=== PATIENT | female | born 1965 | race Caucasian/White ===

== ENCOUNTER 2023-08-05 19:09 | Outpatient (REF) | payer MEDICAID, SELFPAY ==
[2023-08-05 20:25] LABS: Influenza A PCR NEGATIVE (Negative); Influenza B PCR NEGATIVE (Negative); Resp Syncy Virus RNA Qual PCR NEGATIVE (Negative); SARS COV2 PCR INHOUSE NEGATIVE (Negative)
== END 2023-08-05 19:10 | disposition home or self-care (01) ==
LOC: HO.HHCLNP 19:09
PROVIDERS: Visit Provider Family Medicine
DX: J06.9 Acute upper respiratory infection, unspecified (principal); Z11.52 Encounter for screening for COVID-19
CPT/HCPCS: 0241U; 87070

== ENCOUNTER 2024-01-11 08:23 | Outpatient (REF) | payer MEDICAID, SELFPAY ==
[2024-01-11 15:27] LABS: Alanine Aminotransferase 12 U/L (0-31); Albumin Level 4.3 g/dL (3.5-5.0); Alkaline Phosphatase 124 U/L (39-117); Anion Gap 12 (12-20); Aspartate Amino Transferase 18 U/L (5-31); Bilirubin Total 0.3 mg/dL (0.0-1.0); Blood Urea Nitrogen 17 mg/dL (9-16); Calcium 9.3 mg/dL (8.4-10.2); Carbon Dioxide 25 mmol/L (22-29); Chloride 108 mmol/L (96-108); Cholesterol 229 mg/dL (<200); Estimated Glomerular Filt Rate > 60; Glucose Random 76 mg/dL (60-115); HDL Cholesterol 63 mg/dL (>40); LDL Cholesterol Calculated 143 mg/dL (<100); Potassium 4.7 mmol/L (3.3-5.1); Sodium 140 mmol/L (135-145); Total Protein 7.9 g/dL (6.5-8.0); Triglycerides 118 mg/dL (<150)
== END 2024-01-11 08:24 | disposition home or self-care (01) ==
LOC: HO.CHCLDS 08:23
PROVIDERS: Visit Provider Internal Medicine
DX: E78.2 Mixed hyperlipidemia (principal)
CPT/HCPCS: 36415; 80053; 80061

== ENCOUNTER 2024-09-13 15:12 | Outpatient (REF) | payer MEDICAID, SELFPAY ==
[2024-09-13 17:55] LABS: Alanine Aminotransferase 23 U/L (0-31); Albumin Level 4.3 g/dL (3.5-5.0); Alkaline Phosphatase 123 U/L (39-117); Anion Gap 14 (12-20); Aspartate Amino Transferase 24 U/L (5-31); Bilirubin Total 0.3 mg/dL (0.0-1.0); Blood Urea Nitrogen 17 mg/dL (9-16); Calcium 9.5 mg/dL (8.4-10.2); Carbon Dioxide 29 mmol/L (22-29); Chloride 105 mmol/L (96-108); Cholesterol 142 mg/dL (<200); Estimated Glomerular Filt Rate > 60; Glucose Random 91 mg/dL (60-115); HDL Cholesterol 55 mg/dL (>40); LDL Cholesterol Calculated 55 mg/dL (<100); Sodium 144 mmol/L (135-145); Total Protein 7.5 g/dL (6.5-8.0); Triglycerides 163 mg/dL (<150)
--- OUTSIDE RECORDS SUMMARY | 2024-09-14 22:20 | XMS_ITS | Data Portability ---
Author Organization [facility], [address] Address [address] [place] [address] Assessment No assessment recorded. Plan of Treatment Reminders Order Date Submit Date Provider Last Modified By Organization Details Last Modified Time Details Appointments None recorded. Lab None recorded. Referral None recorded. Procedures None recorded. Surgeries None recorded. Imaging None recorded. Medication Orders Tubersol 5 tub. unit/0.1 mL intradermal injection solution 2022 023 [email or web address] Not available 3 15:18:01 Patient TargetsNo targets recorded. Patient InstructionsNo instructions recorded. Reason for Referral None Reported. Medical Equipment None Reported. Medications Name Sig Start Date Stop Date Status Note LastModified by Organization Details LastModified Time Tubersol 5 tub. unit/0.1 mL intradermal injection solution Inject 0.1 mL by intradermal route. 2022 active Not Available Not Available Not Avai lable Vitals None Recorded Social History None recorded. Functional Status None recorded. Mental Status None recorded. Family History Nothing Reported. Medical History No medical history recorded. Gynecological HistoryNo gynecological history recorded. Obstetrics History GPAL:G 0 P 0 0 0 0 Past Encounters Encounter ID Performer Location Encounter Start Date Encounter Closed Date Diagnosis/Indication Diagnosis SNOMED-CT Code Diagnosis ICD10 Code [id number] [address] [place] [address] 05/15/2020 13:08:46 05/15/2020 15:19:50 [id number] [address] [place] [address] 04/19/2019 16:05:31 04/19/2019 16:30:31 [id number] [address] [facility] [place] [address] 06/03/2015 13:31:00 06/03/2015 14:20:10 [id number] [address] [facility] [place] [address] 06/09/2017 13:17:18 06/09/2017 14:38:25 [id number] [address] [facility] [place] [address] 10/28/2018 08:18:47 10/28/2018 09:00:42 [id number] [address] Kamran [facility] [place] [address] 02/28/2017 08:39:54 02/28/2017 09:19:50 [id number] [address] [facility] [place] [address] 02/26/2017 13:13:13 02/26/2017 14:00:54 [id number] [address] [facility] [place] [address] 07/22/2019 17:01:41 07/22/2019 17:41:42 [id number] CHRIS AGUILERA MD [address] [facility] [place] [address] 12/03/2022 11:03:28 12/03/2022 15:43:29 History and physical examination, pre-employment [id number] Z02.1 Health Concerns Section Related Observation LastModified by Organization Detai ls LastModified Time None Recorded Concern Status LastModified by Organization Details LastModified Time None Recorded Advance Directives Directive None Recorded Payers Encounter Date Sequence Insurance Name Policy Number Policy Butler Covered Member ID Butler Member ID Guarantor Name 05/15/2020 1 [place] [facility] Chacha Gemma Delgado [id number] Chacha Gemma Delgado 12/03/2022 DO NOT USE Chacha L Danny PAY AT TIME OF SERVICE Chacha Delgado Notes Date Note Type Note Provider Name and Address Organization Details Recorded Time 12/03/2022 text/html PhysicalReported bypatient.source of patient informationpatient Patient presents for a physical for:Employment Occupation; 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 CHRIS AGUILERA MD [address] [place], [address], [place] - [employer] 12/03/2022 15:18:38 OBGyn Episode No OBEpisode recorded.
== END 2024-09-13 15:13 | disposition home or self-care (01) ==
LOC: HO.CHCLDS 15:12
PROVIDERS: Visit Provider Internal Medicine
DX: E78.2 Mixed hyperlipidemia (principal)
CPT/HCPCS: 36415; 80053; 80061

== ENCOUNTER 2025-06-09 08:23 | Emergency (ER) | payer OTHER, SELFPAY ==
--- NOTE | ~2025-06-09 | XR_ITS ---
EXAMINATION: XR CHEST 2 VIEWS HISTORY: left sided CP after injury COMPARISON: There are no prior studies available for comparison. FINDINGS: PA and lateral views of the chest are submitted. The lungs are expanded and clear. There is no pleural effusion, pneumothorax, or pulmonary vascular congestion. The heart is normal in size. The bones are intact. XR/XR chest 2V IMPRESSION: Clear lungs. Electronically signed by: Casa Ojeda MD 06/09/2025 09:29 AM EDT
--- NOTE | 2025-06-09 08:26 | ECG_ITS ---
Test Reason : CP Blood Pressure : */* mmHG Vent. Rate : 74 BPM Atrial Rate : 74 BPM P-R Int : 162 ms QRS Dur : 94 ms QT Int : 380 ms P-R-T Axes : 74 28 45 degrees QTcB Int : 421 ms Normal sinus rhythm Cannot rule out Anterior infarct (cited on or before 29-Aug-2013) Abnormal ECG When compared with ECG of 29-Aug-2013 12:13, No significant change was found Referred By: Generic ED Physician Electronically Signed By: Getachew Valdez
[2025-06-09 08:27] VITALS: BP 130/70; PULSE 98; O2SAT 98
--- NOTE | 2025-06-09 08:32 | ED.GENADULT ---
HPI - General Adult General Chief complaint: Chest Pain Stated complaint: chest pain Time Seen by Provider: 06/09/25 08:31 History of Present Illness ED Provider: Neri ESTEVEZ narrative: The patient is a 60-year-old woman. 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 Six days ago on Thursday she was loading a heavy box of juice into a juice dispensing was seen. She had to lift the box at least to the level of the her head or possibly higher to insert the box into the machine when the box fell back and struck her on the left side of her chest. The corner of the box struck her left anterior chest. She says that she had the wind knocked out of her but she did not fall to the floor. She said she had to take a few minutes to compose herself after having the wind knocked out of her but she seemed to recover and was able to continue working. She did not work the next day, on Thursday and she did not feel very bad but since then she has had worsening pain in the left side of her chest at the site where she was struck. Despite the pain she returned to work as scheduled on Thursday and has worked every day this week despite worsening pain. She says that yesterday she tried to be seen at an urgent care clinic because of this pain but the clinic did not take her insurance. This morning she went to work despite some pain. She did some lifting of boxes at work and then, with the an half an hour, she started to experience significantly worsening pain in the left side of her chest. She told coworkers and they called an ambulance and she was brought to the hospital. The pain is on the left side of her chest. It is worse with movement or with touching her chest. She has a mild associated shortness of breath. Breathing is somewhat painful. She reports a history of ovarian cancer for which she was treated about 14 years ago. She has no history of heart disease or stroke. No history of DVT/PE. She is on medication for cholesterol but does not take any other regular medications. No abdominal pain, nausea, vomiting. She is a smoker. She has a mild chronic cough. No marked increase in cough. No fever, sweats, chills. Related Data Previous Rx's ?Medication ?Instructions ?Recorded lidocaine 5 % topical patch 1 patch topical DAILY PRN pain #15 06/09/25 ea Allergies Allergy/AdvReac Type Severity Reaction Status Date / Time aspirin (ASPIRIN) Allergy Mild STOMACH Verified 06/09/25 08:36 UPSET Review of Systems Review of Systems: Yes all other systems are reviewed and are negative Physical Exam ED Vital Signs: Vital Signs - 24 hr 06/09/25 08:36 06/09/25 10:20 06/09/25 11:53 Temperature 98.0 F 98.2 F 98.2 F Pulse Rate 86 62 63 Respiratory Rate 12 12 13 Blood Pressure 138/72 122/68 114/66 Pulse Oximetry 98 99 97 Oxygen Delivery Method Room Air Room Air 06/09/25 12:00 Temperature 98.2 F Pulse Rate 63 Respiratory Rate 13 Blood Pressure 114/66 Pulse Oximetry 97 Oxygen Delivery Method Room Air BMI result Body Mass Index 27.6 Const Other: The patient is a 60-year-old woman who was awake and alert, pleasant cooperative. She does not appear obviously in distress or obviously ill. Orientation/consciousness: patient oriented x3 HENMT Other: The face is symmetrical. ?Mucous membranes moist. Eyes Other: Pupils are round equal, conjunctivae are clear, extraocular movements intact Neck Neck: Yes normal visual inspection, Yes full ROM and Yes no JVD Chest Other: There is left-sided chest wall tenderness anteriorly. No subcutaneous emphysema or crepitus. Resp Other: Breath sounds seem equal and symmetrical. Effort & Inspection: normal respiratory effort Auscultation: clear to auscultation bilaterally Cardio Rate: regular rate Rhythm: regular rhythm Heart sounds: S1 normal heart sound present and S2 normal heart sound present GI Other: The abdomen is soft and nontender Skin Other: The skin is dry and unremarkable. No bruises apparent on the chest. Neuro General: patient oriented x3, tone normal, moves all extremities, no focal motor deficits and CN's II-XI intact bilaterally Extrem Other: No injuries to the extremities. No peripheral edema. No calf swelling or tenderness. No asymmetry. Medications Administered Discontinued Medications Generic Name Dose Route Start Last Admin Trade Name Freq PRN Reason Stop Dose Admin Acetaminophen 1,000 mg in 100 mls @ 400 mls/hr 06/09/25 08:50 06/09/25 09:39 Ofirmev IV 06/09/25 09:04 Infused ONCE ONE Infusion Ketorolac Tromethamine 15 mg 06/09/25 08:50 06/09/25 09:05 Ketorolac Tromethamine 15 Mg/Ml Vial IVPUSH 06/09/25 08:51 15 mg ONCE ONE Administration Medical Decision Making Medical Decision Making [facility] Narrative: The patient is a 60-year-old woman who sustained a blow to her chest several days ago from a box striking her in the chest. She has had some persistent pain that was exacerbated by lifting things this morning. She has a normal chest x-ray. EKG is unremarkable. Labs are unremarkable. She has reproducible chest wall tenderness on exam. She has no pneumothorax on x-ray. No apparent rib fractures. My suspicion for rib fracture would be low. She felt better with a dose of IV ketorolac and acetaminophen. She felt comfortable being discharged. She will be discharged with conservative instructions. Lab Data 06/09/25 08:59 06/09/25 08:59 Labs: Lab Results 06/09/25 Range/Units 08:59 WBC 8.2 (4.8-10.8) X10*3/uL RBC 4.35 (4.20-5.50) X10*6/uL Hgb 13.5 (12.0-16.0) g/dl Hct 38.0 (37.0-47.0) % MCV 87.4 (80.0-98.0) fL MCH 31.0 (27.0-33.0) pg MCHC 35.5 H (31.0-35.0) g/dl RDW 12.3 (11.0-16.0) % Plt Count 338 (160-400) X10*3/uL MPV 8.3 L (9.4-12.3) fL Immature Gran % (Auto) 0.4 (0.0-0.4) % Neut % (Auto) 58.6 (45-73) % Lymph % (Auto) 32.5 (20-40) % Bell % (Auto) 6.8 (2-11) % Eos % (Auto) 1.1 (0-4) % Baso % (Auto) 0.6 (0-2) % Lymph # (Auto) 2.7 (1.2-4.9) X10*3/uL Bell # (Auto) 0.6 (0.1-1.2) X10*3/uL Eos # (Auto) 0.1 (0.0-0.4) X10*3/uL Baso # (Auto) 0.1 (0.0-0.2) X10*3/uL Abs Immat Gran (auto) 0.03 (0.00-0.03) X10*3/uL Absolute Neuts (auto) 4.8 (2.0-8.3) x10*3/uL Absolute Nucleated RBC 0.000 (0.0-0.012) X10*3/uL Nucleated RBC % (auto) 0.0 (0.0-0.2) /100WBC Sodium 143 (135-145) mmol/L Potassium 4.3 (3.3-5.1) mmol/L Chloride 109 H (96-108) mmol/L Carbon Dioxide 25 (22-29) mmol/L Anion Gap 13 (12-20) BUN 13 (9-16) mg/dL Creatinine 0.56 (0.5-1.4) mg/dL Estim Creat Clear Calc 119.0 Estimated GFR > 60 Random Glucose 96 (60-115) mg/dL Calcium 8.9 D (8.4-10.2) mg/dL Total Bilirubin 0.6 (0.0-1.0) mg/dL Direct Bilirubin 0.2 (0.0-0.5) mg/dL AST 24 (5-31) U/L ALT 12 (0-31) U/L Alkaline Phosphatase 121 H (39-117) U/L Troponin I High Sens < 2.7 (<3.5-17.0) ng/L Total Protein 7.1 (6.5-8.0) g/dL Albumin 4.5 (3.5-5.0) g/dL Independent Interpretation I performed an independent interpretation of an: EKG Interpretation: EKG at 12/05/2007 shows normal sinus rhythm at 74 beats per minute. It seems to be an unremarkable EKG in his similar to her previous EKG. Discharge Plan Discharge Clinical Impression: Contusion of left chest wall Patient Disposition: Home, Self-Care Additional Instructions: I think your pain is coming primarily from an injury to your chest wall. I think this is probably something like a bad internal bruising of your chest wall. Your EKG, your chest x-ray, and your blood work are all reassuring. I think your insurance may cover lidocaine patches. You may use these for pain. 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 You can then put on another patch the following day in a similar manner. Otherwise please rest over the weekend and avoid activities that exacerbate your pain. My hope is that you will be feeling well enough to return to work on Thursday. Please follow up with your regular doctor soon. Return to the emergency room if significantly worse. Prescriptions: New lidocaine 5 % adhesive patch,medicated 1 patch topical DAILY PRN (Reason: pain) Qty: 15 0RF Rx Instructions: leave on most painful area for up to 12 hrs Referrals: [facility] [Provider Group] Interventions: ED Discharge Assessment Last Done: 06/09/25 12:00 Discharge Date/Time: 06/09/25 12:01 Print Language: Tamazight
[2025-06-09 08:36] VITALS: BP 138/72; PULSE 86; RESP 12; TEMP 36.7; O2SAT 98; BMI 27.6
--- NOTE | 2025-06-09 08:53 | PC.NURSE ---
Pt presents with reproducible left sided chest pain after having a box of drinks fall from shelf onto chest 6days ago. Tender to touch. Some SOB. Pain worsening today after lifting boxes. EKG done upon arrival. VSS. NAD. CORNEJO at bedside. Pending labs and xray
[2025-06-09 09:05] LABS: MANUAL DIFF FLAG NO
[2025-06-09 09:06] LABS: Hematocrit 38.0 % (37.0-47.0); Hemoglobin 13.5 g/dl (12.0-16.0); Imm Gran Abs Auto 0.03 X10*3/uL (0.00-0.03); Imm Gran Pct Auto 0.4 % (0.0-0.4); Lymphocytes Absolute Auto 2.7 X10*3/uL (1.2-4.9); Mean Corpuscular HGB Conc 35.5 g/dl (31.0-35.0); Mean Corpuscular Hemoglobin 31.0 pg (27.0-33.0); Mean Corpuscular Volume 87.4 fL (80.0-98.0); NRBC Abs Auto 0.000 X10*3/uL (0.0-0.012); NRBC Pct Auto 0.0 /100WBC (0.0-0.2); Platelet Count 338 X10*3/uL (160-400); Red Blood Count 4.35 X10*6/uL (4.20-5.50); White Blood Count 8.2 X10*3/uL (4.8-10.8)
--- OUTSIDE RECORDS SUMMARY | 2025-06-09 09:19 | XMS_ITS | Clinical Summary ---
Author Organization [employer] Address [address] [place] [address] [address] [place] [address] Care Team Providers Care Marine Electronics Repairer Name Role Phone Gab Irby MD Primary Care Prov ider Allergies Active Allergy Reactions Criticality Noted Date Comments Aspirin 12/26/2022 Medications albuterol 108 (90 Base) MCG/ACT inhalerIndicati ons:Bronchitis Inhale 2 puffs every 4 (four) hours if needed for wheezing. 18 g 3 3 Active Blood Pressure kitIndications: Elevated blood pressure reading 1 Units in the morning. 1 kit 3 Active atorvastatin (Lipitor) 20 MG tablet Take 1 tablet (20 mg) by mouth Once per day. 90 tablet 3 4 09/13/20 25 Active hydrOXYzine HCl (Atarax) 25 MG tablet Take 1 tablet (25 mg) by mouth if needed in the morning, at noon, and at bedtime for anxiety. 90 tablet 3 4 Active fluticasone (Flonase) 50 MCG/ACT nasal spray INHALE 1 - 2 SPRAYS IN EACH NOSTRIL ONCE DAILY 16 g 2 5 Active tiZANidine (Zanaflex) 2 MG tablet Take 1 tablet (2 mg) by mouth every 8 (eight) hours if needed for muscle spasms for up to 10 days. 30 tablet 1 5 Active lidocaine (Lidoderm) 5 % patch Apply 1 patch topically Once per day. Remove & discard patch within 12 hours or as directed by MD. 30 patch 2 5 04/27/20 26 Active Active Problems Problem Noted Date Diagnosed Date Sinus congestion 01/15/2024 Assessment & Plan (09/13/2024 7:55 PM EST): Renewed flonase, avoid smoking Assessment & Plan (01/15/2024 12:05 AM EDT): Will send flonase, call back if not improving, patient has jx of nasal polyps Anxiety 01/15/2024 Assessment & Plan (01/15/2024 12:06 AM EDT): Will order hydroxyzine as needed Bronchitis 08/05/2023 Assessment & Plan (08/12/2023 6:26 PM EST): Will order PFT tot evaluate for COPD Assessment & Plan (08/05/2023 3:24 PM EDT): Patient that presented visit with complaints of Bronchitis symptoms will be prescribed with antibiotics, steroids and inhaler to treat symptoms. Will pursue possible testing for COPD when patient improves URI symptoms. Elevated blood pressure reading 08/05/2023 Assessment & Plan (09/13/2024 7:54 PM EST): Controlled, continue monitoring, bp target <140/90, keep low sodium diet and exercise as tolerated Assessment & Plan (12/22/2023 3:01 PM EDT): Has remained stable refers has stayed below 140/90, last was 127/82 Assessment & Plan (08/12/2023 6:29 PM EST): Patient did not picked up her bp monitor, today was elevated, told to keep a bp log, low sodium diet, will schedule a follow up in 1 month Assessment & Plan (08/05/2023 3:24 PM EDT): Noticed that patient's BP was elevated at the time of visit with readings of 156/88 mmHg. Will make follow up appointment with PCP. Mixed hyperlipidemia 01/14/2023 Assessment & Plan (09/13/2024 7:55 PM EST): New labs ordered for guidance of therapy, she restarted smoking again, risk were discussed, Assessment & Plan (06/23/2024 11:07 AM EDT): Patient sopped taking statin therapy for a month due to insurance issue, will renew medication and follow up in 2 months with new labs to determine if increase in medication needed Assessment & Plan (01/15/2024 12:04 AM EDT): Ascvd risk score 6.7%, discussed with patient risk vs benefits of statin therapy, she agree on restarting medication, follow up in 2 months Assessment & Plan (12/22/2023 3:04 PM EDT): Patient stopped taking atorvastatin, will order new labs, will conside rosuvastatin Assessment & Plan (01/14/2023 9:05 AM EDT): Will start on atorvastatin 20mg, reviewed diet and exercise recommendations, follow up in 2 months with labs, encouraged smoking cessation Annual physical exam 12/26/2022 Assessment & Plan (12/26/2022 1:31 PM EDT): Physical examination was unremarkable She has hx of Jake/BSo done in 2010 in [facility] due to malignancy Patient refers last colonoscopy done in 2014 at [facility], good for 10 years Will refer for screening breast cancer Will refer to thoracic surgery for lung cancer screening Nicotine patches will be provided Lab order placed Encounter for screening mamm ogram for malignant neoplasm of breast 12/26/2022 Assessment & Plan (12/22/2023 3:02 PM EDT): Patient will reschedule appointment, reviewed importance of monitoring Screening for colon cancer 12/26/2022 Assessment & Plan (08/12/2023 6:27 PM EST): Will send cologuard, risk vs benefits discussed Screening for lung cancer 12/26/2022 Smoker 12/26/2022 Assessment & Plan (06/23/2024 11:08 AM EDT): Encouraged smoking cessation, risk vs benefits discussed Assessment & Plan (12/22/2023 3:03 PM EDT): Has cut down to 6-7 cig daily, reviewed importance of smoking cessation Assessment & Plan (12/26/2022 1:29 PM EDT): Will provide nicotine patches, currently smoking 4-5 cig daily Encounters Date Type Department Care Team Description 06/06/2025 Travel 05/30/2025 Telephone [facility] [address] [place] [address] Gab Irby MD No Show 05/30/2025 Telephone [facility] [address] [place] [address] Gab Irby MD 05/30/2025 Travel 05/29/2025 Telephone [facility] [address] [place] [address] Gab Irby MD chart prep 04/27/2025 2:00 PM EDT Office Visit [facility] [address] [place] [address] Laz Menendez MD Right hip pain (Primary Dx); Right buttock pain; Tobacco dependence; Left foot pain 04/27/2025 Travel 04/27/2025 Telephone [facility] [address] [place] [address] Gab Irby MD Nurse Triage 03/09/2025 Telephone [facility] [address] [place] [address] Gab Irby MD from Last 3 Months Immunizations Immunization Administration Dates Next Due Influenza Injectable Quadriv alant Preservative Free IIV4 MDCK 06/12/2020 Influenza injectable quadriv alent IIV4 with preservative 06/15/2019 MMR 02/04/2023,01/07/2023 Social History Tobacco Use Types Packs/Day Years Used Date Smoking Tobacco: Every Day Cigarettes 0.5 30 Passive Smoke Exposure: Current Smokeless Tobacco: Never Tobacco Cessation:Ready to Q uit: Not Asked; Counseling Given: Not Answered Alcohol Use Standard Drinks/Week Comments Not Currently 0 (1 standard drink = 0.6 oz pur e alcohol) Depression Answer Date Recorded Patient Health Questionnaire-9 Score 0 12/26/2022 Housing Stability Answer Date Recorded What is your housing situation today? I have carol sosa 07/23/[address] you li ve. Do you have problems with any of the following? None of the above 07/23/2023 Food Insecurity Answer Date Recorded Within the past 12 months, y ou worried that your food would run out before you got money to buy more: Never True 07/23/2023 Within the past 12 months,th e food you bought just didn't last and you didn't have enough money to get more: Never True Transportation Answer Date Recorded In the past 12 months, has l ack of transportation kept you from medical appts, meetings, work or from getting things needed for daily living? No 07/23/2023 Utilities Answer Date Recorded In the past 12 months, has t he electric, gas, oil or water company threatened to shut off services in your home? No 07/23/2023 Depression Answer Date Recorded Patient Health Questionnaire-2 Score 0 12/26/2022 Comments Unknown Sex and Gender Information Value Date Recorded Sex Assigned at Female 08/04/2022 10:20 AM EDT Legal Sex Female 10:20 AM EDT Gender Identity Female 08/04/2022 10:20 AM EDT Sexual Orientation Choose not to disclose 2021 10:20 AM EDT Last Filed Vital Signs Vital Sign Reading Time Taken Comments Blood Pressure 134/76 04/27/2025 2:01 PM EDT Pulse 82 04/27/2025 2:01 PM EDT Temperature 36.5 C (97.7 F) 04/27/2025 2:01 PM EDT Respiratory Rate 20 04/27/2025 2:01 PM EDT Oxygen Saturation 98% 04/27/2025 2:01 PM EDT Inhaled Oxygen Concentration - - Weight 79.5 kg (175 lb 3.2 oz) 04/27/2025 2:01 P M EDT Height 160 cm (5' 3 ) 04/27/2025 2:01 PM EDT Body Mass Index 31.04 04/27/2025 2:01 PM EDT Plan of Treatment Upcoming Encounters Date Type Department Care Team ([facility] st Contact Info) Description 06/21/2025 2:15 PM EDT Telemedicine [facility] [address] [place] [address] Gab Irby MD [address] [place] [address] Health Maintenance Due Date Last Done Comments CT Colonography 1967 Colonoscopy 1967 FIT 1967 Sigmoidoscopy 1967 Disability Screening 1967 Alcohol/Substance Use Screening 1979 DTaP/Tdap/Td Vaccines (1 - Tdap) 1986 Hepatitis B Vaccines (1 of 3 - 19+ 3-dose series) 1986 Pneumococcal Vaccine: 50+ Years (1 of 2 - PCV) 1986 Pap Smear 01/09/1988 HPV/Cotest 1997 Mammogram 2007 Zoster Vaccines (1 of 2) 2017 Depression Screening 12/27/2023 12/26/2022, 12/26/2022 SDOH Screening 12/27/2023 12/26/2022 FOBT 08/26/2024 08/26/2023 COVID-19 Vaccine (1 - 2023-2 5 season) 2025 Influenza Vaccine (#1) 2025 , 06/15/2019 Tobacco Screening 04/27/2026 04/27/2025 Colorectal Cancer Screening 08/26/2026 FIT DNA/Cologuard 08/26/2026 08/26/2023 Lipid Panel 09/13/2029 09/13/2024, 01/11/2024, 12/26/2022 RSV Patients and Patients Aged 60 years or older (1 - 1-dose 75+ series) 2042 HIV Screening Completed 12/26/2022 Hepatitis C Screening Completed 12/26/2022 Cervical Cancer Screening Discontinued HIB Vaccines Aged Out No longer eligi ble based on patient's age to complete this topic HPV Vaccines Aged Out No longer eligi ble based on patient's age to complete this topic Hepatitis A Vaccines Aged Out No long er eligible based on patient's age to complete this topic IPV Vaccines Aged Out No longer eligi ble based on patient's age to complete this topic Meningococcal B Vaccine Aged Out No l onger eligible based on patient's age to complete this topic Meningococcal Vaccine Aged Out No maria m merle eligible based on patient's age to complete this topic RSV under 20 months Aged Out No longe r eligible based on patient's age to complete this topic Rotavirus Vaccines Aged Out No longer eligible based on patient's age to complete this topic Procedures Procedure Name Priority Date/Time Associated Diagnosis Comments LIPID PANEL, STANDARD Routine 09/13/2024 3:13 PM EST Mixed hyperlipidemia LAB COLOGUARD COLON CANCER SCREEN Routine 08/26/2023 5:30 AM EST Screening for colon cancer HEPATITIS C AB W/REFL TO HCV RNA, QN, PCR Routine 12/26/2022 11:43 AM EDT Annual physical exam HIV 1 RNA, QN PCR W/RFL JIM (RTI,PI,INTEGRASE) Routine 12/26/2022 11:43 AM EDT Annual physical exam from Last 3 Months or Most Recently Relevant to Health Maintenance Results * (ABNORMAL) Lipid Panel, Standard (09/13/2024 3:13 PM EST) Triglycerides 163(H) <150 mg/dL [facility] Comment:Desirable Triglyceri de: less than 150 mg/dLBorderline High Triglyceride 150-199 mg/dLHigh Triglyceride: 200-499 mg/dLVery High Triglyceride: greater than or equal to 5OO mg/dL Cholesterol 142 <200 mg/dL [facility] Comment:Desirable Cholestero l: less than 200 mg/dLBorderline High Cholesterol: 200-239 mg/dLHigh Cholesterol: greater than 239 mg/dL LDL Cholesterol Calculated 55 <100 mg/dL [facility] Comment:Desirable LDL: less than 100 mg/dLNear Optimal/Above Optimal LDL: 110- 129 mg/dLBorderline High LDL: 130-159 mg/dLHigh LDL: 160-189 mg/dLVery High LDL: greater than or equal to 190 mg/dL HDL Cholesterol 55 >40 mg/dL [facility] Comment:Desirable HDL: great er than 40 mg/dL Note: This HDL assay may give artificially low results in patients with liver disease. Blood Venous blood specimen / Unknown 09/13/2024 3:13 PM EST 09/13/2024 5:36 PM EST Gab Wolfe MD LAB BLOOD ORDERABL ES Final Result [facility] [address] [place] [phone] * Cologuard?? colon cancer screening (08/26/2023 5:30 AM EST) Cologuard Result Negative Negative 09/04/20 5:15 PM EST [facility] (CLIA #:[id number]) Comment: NEGATIVE TEST RESULT. A negative Cologuard result indicates a low likelihood that a colorectal cancer (CRC) or advanced adenoma (adenomatous polyps with more advanced pre-malignant features) is present. The chance that a person with a negative Cologuard test has a colorectal cancer is less than 1 in 1500 (negative predictive value >99.9%) or has an advanced adenoma is less than 5.3% (negative predictive value 94.7%). These data are based on a prospective cross-sectional study of 10,000 individuals at average risk for colorectal cancer who were screened with both Cologuard and colonoscopy. (Joyce Sethi al, N Engl J Med 2014;370(14):4758-8785) The normal value (reference range) for this assay is negative. COLOGUARD RE-SCREENING RECOMMENDATION: Periodic colorectal cancer screening is an important part of preventive healthcare for asymptomatic individuals at average risk for colorectal cancer. Following a negative Cologuard result, the [place] Cancer Society and U.S. Multi-Society Task Force screening guidelines recommend a Cologuard re-screening interval of 3 years. References: [place] [employer] Guideline for Colorectal Cancer Screening: https://www.cancer.org/cancer/temta-bcurfr-jsmvws/fuuhqaxqc-vevglpidj-scfldwz/ac s-rec ommendations.html.; Benito DK, Ale CR, Noemi ParkK, Colorectal Cancer Screening: Recommendations for Physicians and Patients from the U.S. Multi-Society Task Force on Colorectal Cancer Screening , Am J Gastroenterology 2017; 112:9987-6286. TEST DESCRIPTION: Composite algorithmic analysis of stool DNA-biomarkers with hemoglobin immunoassay. Quantitative values of individual biomarkers are not reportable and are not associated with individual biomarker result reference ranges. Cologuard is intended for colorectal cancer screening of adults of either sex, 45 years or older, who are at average-risk for colorectal cancer (CRC). Cologuard has been approved for use by the U.S. FDA. The performance of Cologuard was established in a cross sectional study of average-risk adults aged 50-84. Cologuard performance in patients ages 45 to 49 years was estimated by sub-group analysis of near-age groups. Colonoscopies performed for a positive result may find as the most clinically significant lesion: colorectal cancer [4.0%], advanced adenoma (including sessile serrated polyps greater than or equal to 1cm diameter) [20%] or non- advanced adenoma [31%]; or no colorectal neoplasia [45%]. These estimates are derived from a prospective cross-sectional screening study of 10,000 individuals at average risk for colorectal cancer who were screened with both Cologuard and colonoscopy. (Joyce Sethi al, N Engl J Med 2014;370(14):3521-5435.) Cologuard may produce a false negative or false positive result (no colorectal cancer or precancerous polyp present at colonoscopy follow up). A negative Cologuard test result does not guarantee the absence of CRC or advanced adenoma (pre-cancer). The current Cologuard screening interval is every 3 years. ([place] [employer] Society and U.S. Multi-Society Task Force). Cologuard performance data in a 10,000 patient pivotal study using colonoscopy as the reference method can be accessed at the following location: www.DaoliCloud.[place]/results. Additional description of the Cologuard test process, warnings and precautions can be found at www.Netvibesrd.com. Stool specimen (specimen) 08/26/2023 5:30 AM EST 08/26/2023 5:57 PM EST Gab Wolfe MD LAB MOLECULAR DIAG NOSTICS ORDERABLES Final Result Performing Organization Address City/[facility]/ZIP Co de Phone Number [employer] (CLIA #:[id number]) [place] [address], * HIV-1 RNA, Quantitative, Real-Time PCR with Reflex to Genotype (RTI, PI, Integrase) (12/26/2022 11:43 AM EDT) HIV 1 RNA, QN PCR NOT DETECTED copies/mL [facility], HIV 1 RNA, QN PCR NOT DETECTED Log copies/mL [facility], Comment: REFERENCE RANGE: NOT DETECTED copies/mL NOT DETECTED Log copies/mL This test was performed using Real-Time Polymerase Chain Reaction. Reportable range is 20 to 10,000,000 copies/mL (1.30-7.00 Log copies/mL). 12/26/2022 11:4 3 AM EDT 12/26/2022 11:44 AM EDT Narrative [facility] - 12/29/2022 6:54 PM EDT FASTING:YES FASTING: YES Gab Wolfe MD LAB BLOOD ORDERABL ES Final Result Performing Organization Address [facility] de Phone Number [facility] [address], [place] [address] [facility], [address] [place] [address] * Hepatitis C Antibody with Reflex to HCV, RNA, Quantitative, Real-Time PCR (12/26/2022 11:43 AM EDT) Hepatitis C Antibody NON-REACT ALFONSO NON-REACT ALFONSO [facility] [employer] Index <0.02 <1.00 [facility] [employer] [facility] Comment: HCV antibody was non-reactive. There is no laboratory evidence of HCV infection. In most cases, no further action is required. However, if recent HCV exposure is suspected, a test for HCV RNA (test code 62301) is suggested. For additional information please refer to http://education.ev-social/faq/GIS89e0 (This link is being provided for informational/ educational purposes only.) Blood Venous blood specimen / Unknown 12/26/2022 11:43 AM EDT 12/26/2022 11:44 AM EDT Narrative [facility] - 12/29/2022 6:54 PM EDT FASTING:YES FASTING: YES Gab Wolfe MD LAB BLOOD ORDERABL ES Final Result [facility] [address], [place] [address] [facility] [address] [place] [address] from Last 3 Months or Most Recently Relevant to Health Maintenance Insurance [employer] [facility] 3 Care Teams Marine Electronics Repairer Relationship Specialty Start Date End Date Gab Irby MD [address] [place] [address] [place] [id number] PCP - General Internal Medicine 08/22/19
--- OUTSIDE RECORDS SUMMARY | 2025-06-09 09:19 | XMS_ITS | Encounter Summary ---
Author Organization [employer] Address [address] [place] [address] 7 [place] [address] Care Team Providers Care City Collector Name Role Phone Gab Irby MD Primary Care Prov ider Reason for Visit * Reason Onset Date Comments Nurse Triage 08/22/2024 Encounter Details Date Type Department Care Team ([facility] st Contact Info) Description 08/22/2024 Telephone [facility] [address] [place], [place] [phone] Gab Irby MD [address] [place] [address] Nurse Triage Social History Tobacco Use Types Packs/Day Years Used Date Smoking Tobacco: Former Cigarettes 0.5 30 Passive Smoke Exposure: Current Smokeless Tobacco: Never Alcohol Use Standard Drinks/Week Comments Not Currently [...] not to disclose 2021 10:20 AM EDT documented as of this encounter Miscellaneous Notes * Telephone Encounter - María Merida RN - 08/22/2024 10:34 AM EST triage call Pt reports left sided headache, ear, and throat pain. Pt reports this is a chronic problem and needs medication for pain. Pt doesn't have any pain medication on chart but, has flonase andatarax which were ordered for this condition in January of this year. Pt is advised to request refills that are still in the information. Pt requests to speak with PCP regarding pain medication. Pt is offered [facility] apts but, typewriter tester unable to obtain due to scheduled by [facility] at the same time. Pt is given a tele apt with PCP for 845am 08/23/24 . Pt has a follow up apt scheduled for 09/13/24 to be seen byPCP. Pt is at work at time of call. Insurance is verified as active prior to booking. Protocol Used: Medication Question Call (Adult) Protocol-Based Disposition: See in Office or Video Visit within 3 Days Positive Triage Question: * Prescription request for new medicine (not a refill) * All higher-acuity triage questions were negative Care Advice Discussed: * Reasons To Call Back - You have any more questions - You become worse * Telephone Encounter - Iva Larson - 08/22/2024 10:03 AM EST Symptom: Headache and ear pain Outcome: Schedule a same-day appointment or talk to a nurse or provider today Reason: Caller denied all higher acuity questions The caller accepted this outcome. documented in this encounter Plan of Treatment Upcoming Encounters Date Type Department Care Team (Late st Contact Info) Description 06/21/2025 2:15 PM EDT Telemedicine [facility] [address] [place] [address] Gab Irby MD [address] [place] [address] documented as of this encounter Visit Diagnoses Not on filedocumented in this encounter Additional Health Concerns Assessment Noted Time PHQ-9 Depression Total Score: 0 12/27/19 23 11:05 AM EDT documented as of this encounter Care Teams City Collector Relationship Specialty Start Date End Date Gab Irby MD [address] [place] [address] PCP - General Internal Medicine 08/22/19 documented as of this encounter
--- OUTSIDE RECORDS SUMMARY | 2025-06-09 09:19 | XMS_ITS | Clinical Summary ---
Author Organization [address] [place] [address] Address [address] [place] [address] Phone Care Team Providers Care Wireless Retail Manager Name Role Phone Physician, Pcp Unknown Primary Care Provider Yuli vailable Surgical History Surgery Date Site/Laterality Comments CHOLECYSTECTOMY 1990 PROCEDURE: HISTORICAL CHOLECYSTECTOMY HYSTERECTOMY 2010 PROCEDURE: HISTORICAL HYSTERECTOMY; COMMENT: due to cervical and ovarian cancer, done by Dr. Whitehead BREAST BIOPSY 04-18-16 Left PROCEDURE: BX BREAST; PERC NEEDLE CORE W/IMAG GUID Medical History Medical History Date Comments Cervical cancer ([facility] V24, [facility] V28) 2012 DX:Cervical cancer (HCC); COMMENT: Seeing Dr. 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 Anxiety disorder 06/01/2013 DX:Anxiety diso rder Hypertriglyceridemia 03/11/2016 DX:Hypertri glyceridemia Ovarian cancer ([facility] V24, [facility] V28) 2010 DX:Ovarian cancer (HCC) History of other specified c onditions presenting hazards to health 2010 DX:History of other speci fied conditions presenting hazards to health; COMMENT: cervical Family History Medical History Relation Name Comments Diabetes Aunt 1 maternal Diabetes Mother Heart attack Mother Breast cancer Neg Hx Colon cancer Neg Hx Ovarian cancer Neg Hx Prostate cancer Neg Hx Stroke Neg Hx Relation Name Status Comments Aunt 1 Aunt 2 Mother Social History Tobacco Use Types Packs/Day Years Used Date Smoking Tobacco: Every Day Cigarettes Smokeless Tobacco: Never Alcohol Use Standard Drinks/Week Comments Yes 0 (1 standard drink = 0.6 oz pur e alcohol) Comments Unknown Sex and Gender Information Value Date Recorded Sex Assigned at Not on file Legal Sex Female 12:58 PM EST Gender Identity Not on file Sexual Orientation Not on file Obstetrics History Plan of Treatment Upcoming Encounters Date Type Department Care Team ([facility] Contact Info) Description 08/02/2025 3:00 PM EDT Office Visit Orthopedic Surgery - [place] 250 175 [facility] 250 [place] [phone] Henry Medina, DPM 175 [facility] 250 [place] [address] Health Maintenance Due Date Last Done Comments Breast Cancer Screening 1967 DTaP,Tdap,and Td Vaccines (1 - Tdap) 1986 Hepatitis B Vaccines (1 of 3 - 19+ 3-dose series) 1986 Pneumococcal Vaccine: 50+ Ye ars (1 of 2 - PCV) 1986 Zoster Vaccines (1 of 2) 2017 Depression Screening 10/05/2024 Cholesterol Screening (Lipid Panel) 05/01/2025 Colorectal Cancer Screening: Colonoscopy 05/01/2025 HIV Screening 05/01/2025 Hepatitis C Screening 05/01/2025 Social Influencers of Health Screening 05/01/2025 COVID-19 Vaccine (1 - 2023-2 5 season) 2025 Influenza Vaccine (#1) 2025 06/15/2019 HIB Vaccines Aged Out No longer eligi [...] on patient's age to complete this topic MMR Vaccines Aged Out No longer eligi ble based on patient's age to complete this topic Meningococcal ACWY Vaccine Aged Out N o longer eligible based on patient's age to complete this topic Meningococcal B Vaccine Aged Out No l onger eligible based on patient's age to complete this topic RSV Immunization Patients Un slick 20 months Aged Out No longer eligible b ased on patient's age to complete this topic Varicella Vaccines Aged Out No longer eligible based on patient's age to complete this topic Insurance [place] - [place] [facility] Care Teams Wireless Retail Manager Relationship Specialty Start Date End Date Physician, Pcp Unknown PCP - General 05/01/25
--- OUTSIDE RECORDS SUMMARY | 2025-06-09 09:20 | XMS_ITS | Encounter Summary ---
Author Organization [employer] Address [address] [place] [address] Care Team Providers Care Cotton Picker Operator Name Role Phone Gab Irby MD Primary Care Prov ider Encounter Details Date Type Department Care Team (Latest Contact Info) Description 06/06/2025 Travel Social History Tobacco Use Types Packs/Day Years [...] AM EDT documented as of this encounter Plan of Treatment Upcoming Encounters Date Type Department Care Team (Late st Contact Info) Description 06/21/2025 2:15 PM EDT Telemedicine [facility] [address] [place] [address] Gab Irby MD [address] [place] [address] documented as of this encounter Visit Diagnoses Not on filedocumented in this encounter Additional Health Concerns Assessment Noted Time PHQ-9 Depression Total Score: 0 12/27/19 23 11:05 AM EDT documented as of this encounter Care Teams Cotton Picker Operator Relationship Specialty Start Date End Date Gab Irby MD [address] [place] [address] PCP - General Internal Medicine 08/22/19 documented as of this encounter
--- OUTSIDE RECORDS SUMMARY | 2025-06-09 09:20 | XMS_ITS | Encounter Summary ---
Author Organization [email or web address] Address [address] [place] [address] 7 [place] [address] Care Team Providers Care Manager Field Services Name Role Phone Gab Irby MD Primary Care Prov ider Encounter Details Date Type Department Care Team ([facility] st Contact Info) Description 01/12/2024 Orders Only [facility] [address] [place], [place] [phone] Gab Irby MD [address] [place], [place] [phone] Social History Tobacco Use Types Packs/Day Years [...] Info) Description 06/21/2025 2:15 PM EDT Telemedicine [facility] [address] [place] [address] Gab Irby MD [address] [place] [address] documented as of this encounter Visit Diagnoses Not on filedocumented in this encounter Additional Health Concerns Assessment Noted Time PHQ-9 Depression Total Score: 0 12/27/19 23 11:05 AM EDT documented as of this encounter Care Teams Manager Field Services Relationship Specialty Start Date End Date Gab Irby MD [address] [place] [address] PCP - General Internal Medicine 08/22/19 documented as of this encounter
[2025-06-09 09:21] LABS: Alanine Aminotransferase 12 U/L (0-31); Albumin Level 4.5 g/dL (3.5-5.0); Alkaline Phosphatase 121 U/L (39-117); Anion Gap 13 (12-20); Aspartate Amino Transferase 24 U/L (5-31); Blood Urea Nitrogen 13 mg/dL (9-16); Calcium 8.9 mg/dL (8.4-10.2); Carbon Dioxide 25 mmol/L (22-29); Chloride 109 mmol/L (96-108); Creatinine Clr Calc Pharmacy 119.0; Estimated Glomerular Filt Rate > 60; Potassium 4.3 mmol/L (3.3-5.1); Sodium 143 mmol/L (135-145); Total Protein 7.1 g/dL (6.5-8.0)
[2025-06-09 09:32] LABS: Troponin-I High Sensitivity < 2.7 ng/L (<3.5-17.0)
[2025-06-09 10:20] VITALS: BP 122/68; PULSE 62; RESP 12; TEMP 36.8; O2SAT 99
[2025-06-09 11:53] VITALS: BP 114/66; PULSE 63; RESP 13; TEMP 36.8; O2SAT 97
[2025-06-09 12:00] VITALS: BP 114/66; PULSE 63; RESP 13; TEMP 36.8; O2SAT 97
== END 2025-06-09 12:01 | disposition home or self-care (01) ==
PROVIDERS: Emergency Provider Emergency Medicine; PCP Dentist General Practice
DX: S20.219A Contusion of unspecified front wall of thorax, initial encounter (principal); R07.9 Chest pain, unspecified; R06.02 Shortness of breath; F17.210 Nicotine dependence, cigarettes, uncomplicated; R05.9 Cough, unspecified; W19.XXXA Unspecified fall, initial encounter; Y93.9 Activity, unspecified; Y92.9 Unspecified place or not applicable; Y99.9 Unspecified external cause status
CPT/HCPCS: 36415; 71046; 80048; 80076; 84484; 85025; 93005; 96365; 96375; 99284; 99285; J0131; J1885

== ENCOUNTER → 2025-06-09 08:26 | Outpatient (BNV) | payer OTHER, SELFPAY | PROVIDERS: Emergency Provider Emergency Medicine; PCP Dentist General Practice; Visit Provider Internal Medicine Cardiovascular Disease | DX: R94.31 Abnormal electrocardiogram [ECG] [EKG] (principal); R07.89 Other chest pain | CPT/HCPCS: 93010 ==

== ENCOUNTER → 2025-06-09 08:49 | Outpatient (BNV) | payer OTHER, SELFPAY | PROVIDERS: Emergency Provider Emergency Medicine; PCP Dentist General Practice; Visit Provider Radiology Diagnostic Radiology | DX: R07.89 Other chest pain (principal) | CPT/HCPCS: 71046 ==

== ENCOUNTER 2025-07-11 11:14 | Outpatient (REF) | payer OTHER, SELFPAY | END 2025-07-11 11:15 | disposition home or self-care (01) | LOC: HO.HOSX 11:14 | PROVIDERS: Visit Provider Physician Assistant | DX: Z13.89 Encounter for screening for other disorder (principal) ==

== ENCOUNTER 2025-07-26 10:35 | Outpatient (REF) | payer OTHER, SELFPAY ==
--- OUTSIDE RECORDS SUMMARY | 2025-07-26 13:27 | XMS_ITS | Encounter Summary ---
Author Organization [employer] Address [address] [place] [address] 7 [place] [address] Care Team Providers Care Glass Blower Helper Name Role Phone Gab Irby MD Primary Care Prov ider Reason for Visit * Reason Onset Date Comments Nurse Triage 08/22/2024 Encounter Details Date Type Department Care Team ([facility] st Contact Info) Description 08/22/2024 Telephone [facility] [address] [place], [place] [phone] Gab Irby MD [address] [place] [address] Nurse Triage Social History Tobacco Use Types [...] PCP regarding pain medication. Pt is offered [facility] apts but, sports book writer unable to obtain due to scheduled by [facility] at the same time. Pt is given [...] documented in this encounter Plan of Treatment Not on file documented as of this encounter Visit Diagnoses Not on filedocumented in this encounter Additional Health Concerns Assessment Noted Time PHQ-9 Depression Total Score: 0 12/27/19 23 11:05 AM EDT documented as of this encounter Care Teams Glass Blower Helper Relationship Specialty Start Date End Date Gab Irby MD [address] [place] [address] PCP - General Internal Medicine 08/22/19 documented as of this encounter
--- OUTSIDE RECORDS SUMMARY | 2025-07-26 13:27 | XMS_ITS | Encounter Summary ---
Author Organization [employer] Address [address] [place] [address] 7 [place] [address] Care Team Providers Care Certified Novell Administrator Name Role Phone Gab Irby MD Primary Care Prov ider Encounter Details Date Type Department Care Team ([facility] st Contact Info) Description 01/12/2024 Orders Only [facility] [address] [place], [place] [phone] Gab Irby MD 505 [place], [place] [phone] Social History Tobacco Use Types Packs/Day Years [...] as of this encounter Plan of Treatment Not on file documented as of this encounter Visit Diagnoses Not on filedocumented in this encounter Additional Health Concerns Assessment Noted Time PHQ-9 Depression Total Score: 0 12/27/19 23 11:05 AM EDT documented as of this encounter Care Teams Certified Novell Administrator Relationship Specialty Start Date End Date Gab Irby MD [address] [place] [address] PCP - General Internal Medicine 08/22/19 documented as of this encounter
--- OUTSIDE RECORDS SUMMARY | 2025-07-26 13:27 | XMS_ITS | Clinical Summary ---
Author Organization [employer] Address [address] [place] [address] [address]t [place] [address] Care Team Providers Care Fancy Stitcher Name Role Phone Gab Irby MD Primary Care Prov ider Allergies Active Allergy Reactions Criticality Noted Date Comments Aspirin 12/26/2022 Medications albuterol 108 (90 Base) MCG/ACT inhalerIndicat ions:Bronchiti s Inhale 2 puffs every 4 (four) hours if needed for wheezing. 18 g 3 08/05/20 23 Active Blood Pressure kitIndications :Elevated blood pressure reading 1 Units in the morning. 1 kit 08/12/20 23 Active hydrOXYzine HCl (Atarax) 25 MG tablet Take 1 tablet (25 mg) by mouth if needed in the morning, at noon, and at bedtime for anxiety. 90 tablet 3 09/13/20 24 Active fluticasone (Flonase) 50 MCG/ACT nasal spray INHALE 1 - 2 SPRAYS IN EACH NOSTRIL ONCE DAILY 16 g 2 12/08/19 25 Active tiZANidine (Zanaflex) 2 MG tablet Take 1 tablet (2 mg) by mouth every 8 (eight) hours if needed for muscle spasms for up to 10 days. 30 tablet 1 04/27/20 25 Active lidocaine (Lidoderm) 5 % patch Apply 1 patch topically Once per day. Remove & discard patch within 12 hours or as directed by MD. 30 patch 2 04/27/20 25 026 Active atorvastatin (Lipitor) 20 MG tablet TAKE 1 TABLET BY MOUTH EVERY DAY 90 tablet 3 07/06/20 25 Active atorvastatin (Lipitor) 20 MG tablet Take 1 tablet (20 mg) by mouth Once per day. 90 tablet 3 09/13/20 24 025 Discontinued Active Problems Problem Noted Date Diagnosed Date [...] PCP. Mixed hyperlipidemia 01/14/2023 Assessment & Plan (06/21/2025 2:29 PM EDT): On atorvastatin, will order new labs for guidance of therapy, encouraged smoking cessation, follow up in 4 months Assessment & Plan (09/13/2024 7:55 PM EST): [...] hx of Jake/BSo done in 2010 in [facility] due to malignancy Patient refers last colonoscopy done in 2014 at [facility], good for 10 years Will refer for [...] Encounters Date Type Department Care Team Description 07/06/2025 Refill [facility] [address] [place] [address] Gab Irby MD 06/21/2025 2:15 PM EDT Telemedicine [facility] [address] [place] [address] Gab Irby MD Encounter for screening mammogram for malignant neoplasm of breast (Primary Dx); Mixed hyperlipidemia 06/21/2025 Travel 06/20/2025 Telephone [facility] [address] [place] [address] Gab Irby MD chart prep 06/06/2025 Travel 05/30/2025 Telephone [facility] 505 [facility] [place] [address] Gab Irby MD No Show 05/30/2025 Telephone [facility] 505 [facility] [place] [address] Gab Irby MD 05/30/2025 Travel 05/29/2025 Telephone [facility] [address] [place] [address] Gab Irby MD chart prep 04/27/2025 2:00 PM EDT Office Visit [facility] [address] [place] [address] Laz Menendez MD Right hip pain (Primary Dx); Right buttock pain; Tobacco dependence; Left foot pain 04/27/2025 Travel 04/27/2025 Telephone [facility] [address] [place] [address] Gab Irby MD Nurse Triage from Last 3 Months Immunizations Immunization Administration [...] 04/27/2025 2:01 PM EDT Plan of Treatment Health Maintenance Due Date Last Done Comments [...] 3:13 PM EST) Triglycerides 163(H) <150 mg/dL [facility] Comment:Desirable Triglyceri de: less than 150 mg/dLBorderline High Triglyceride 150-199 mg/dLHigh Triglyceride: 200-499 mg/dLVery High Triglyceride: greater than or equal to 5OO mg/dL Cholesterol 142 <200 mg/dL [facility] Comment:Desirable Cholestero l: less than 200 mg/dLBorderline High Cholesterol: 200-239 mg/dLHigh Cholesterol: greater than 239 mg/dL LDL Cholesterol Calculated 55 <100 mg/dL [facility] Comment:Desirable LDL: less than 100 mg/dLNear Optimal/Above Optimal LDL: 110- 129 mg/dLBorderline High LDL: 130-159 mg/dLHigh LDL: 160-189 mg/dLVery High LDL: greater than or equal to 190 mg/dL HDL Cholesterol 55 >40 mg/dL [facility] Comment:Desirable HDL: great er than 40 mg/dL Note: This HDL assay may give artificially low results in patients with liver disease. Blood Venous blood specimen / Unknown 09/13/2024 3:13 PM EST 09/13/2024 5:36 PM EST Gab Wolfe MD LAB BLOOD ORDERABL ES Final Result Performing Organization Address City/State/[facility] Co de Phone Number [facility] [address] [place] [phone] * Cologuard?? colon cancer screening (08/26/2023 5:30 AM EST) Cologuard Result Negative Negative 09/04/20 5:15 PM EST [facility] (CLIA #:[id number]) Comment: NEGATIVE TEST RESULT. A negative Cologuard [...] (Joyce Sethi al, N Engl J Med 2014;370(14):8852-8706) The normal value (reference range) for this assay is negative. COLOGUARD RE-SCREENING RECOMMENDATION: Periodic colorectal cancer screening is an important part of preventive healthcare for asymptomatic individuals at average risk for colorectal cancer. Following a negative Cologuard result, the [place] Cancer Society and U.S. Multi-Society Task Force screening guidelines recommend a Cologuard re-screening interval of 3 years. References: [place] [employer] Guideline for Colorectal Cancer Screening: https://www.cancer.org/cancer/mirlp-wpytzw-ehtrya/mrgzfdyji-klnwdrsen-xanehxv/ac s-rec ommendations.html.; Benito DK, Ale VILLAGOMEZ, Noemi ParkK, Colorectal Cancer Screening: Recommendations for Physicians and Patients from the U.S. Multi-Society Task Force on Colorectal Cancer Screening , Am J Gastroenterology 2017; 112:9685-1049. TEST DESCRIPTION: Composite algorithmic analysis of stool [...] (Joyce Sethi al, N Engl J Med 2014;370(14):6105-6855.) Cologuard may produce a false negative or false positive result (no colorectal cancer or precancerous polyp present at colonoscopy follow up). A negative Cologuard test result does not guarantee the absence of CRC or advanced adenoma (pre-cancer). The current Cologuard screening interval is every 3 years. ([place] [employer] Society and U.S. Multi-Society Task Force). Cologuard performance data in a 10,000 patient pivotal study using colonoscopy as the reference method can be accessed at the following location: www.[employer].ProspX/results. Additional description of the Cologuard test process, warnings and precautions can be found at www.cologuard.com. Stool specimen (specimen) 08/26/2023 5:30 AM EST 08/26/2023 5:57 PM EST Gab Wolfe MD LAB MOLECULAR DIAG NOSTICS ORDERABLES Final Result [facility] (CLIA #:[id number]) [place] [address], * HIV-1 RNA, Quantitative, Real-Time PCR with Reflex to Genotype (RTI, PI, Integrase) (12/26/2022 11:43 AM EDT) Pathologist [facility] HIV 1 RNA, QN PCR NOT DETECTED copies/mL [facility], HIV 1 RNA, QN PCR NOT DETECTED Log copies/mL [facility], Comment: REFERENCE RANGE: NOT DETECTED copies/mL NOT DETECTED Log copies/mL This test was performed using Real-Time Polymerase Chain Reaction. Reportable range is 20 to 10,000,000 copies/mL (1.30-7.00 Log copies/mL). 12/26/2022 11:4 3 AM EDT 12/26/2022 11:44 AM EDT Narrative [facility] - 12/29/2022 6:54 PM EDT FASTING:YES FASTING: YES Gab Wolfe MD LAB BLOOD ORDERABL ES Final Result [facility] [address], [place] [address] [facility], [address] [place] [address] * Hepatitis C Antibody with Reflex to HCV, RNA, Quantitative, Real-Time PCR (12/26/2022 11:43 AM EDT) Hepatitis C Antibody NON-REACT ALFONSO NON-REACT ALFONSO [facility] Index <0.02 <1.00 [facility] Comment: HCV antibody was non-reactive. There is no laboratory evidence of HCV infection. In most cases, no further action is required. However, if recent HCV exposure is suspected, a test for HCV RNA (test code 44452) is suggested. For additional information please refer to http://education.Lettuce Eat/faq/ZNH53c1 (This link is being provided for informational/ educational purposes only.) Blood Venous blood specimen / Unknown 12/26/2022 11:43 AM EDT 12/26/2022 11:44 AM EDT Narrative [facility] - 12/29/2022 6:54 PM EDT FASTING:YES FASTING: YES us Gab Wolfe MD LAB BLOOD ORDERABL ES Final Result [facility] [address], [place] [address] [facility] [place] [facility] [address] [place] [address] from Last 3 Months or Most Recently Relevant to Health Maintenance Insurance [facility] 3 Care Teams Fancy Stitcher Relationship Specialty Start Date End Date VinesGab Villavicencio MD [address] [place] [address] [place] [address] PCP - General Internal Medicine 08/22/19
--- OUTSIDE RECORDS SUMMARY | 2025-07-26 13:27 | XMS_ITS | Data Portability ---
Author Organization [facility], [address] Address [address] [place] [address] Assessment No assessment recorded. Plan of Treatment [...] Diagnosis/Indication Diagnosis SNOMED-CT Code Diagnosis ICD10 Code Diagnosis IMO Codes Diagnosis Note [id number] [facility] _[address] [address] 05/15/2020 13:08:46 05/15/2020 15:19:50 [id number] [facility] [address] [place] [address] 04/19/2019 16:05:31 04/19/2019 16:30:31 [id number] [address] [address] [facility] [place] [address] 06/03/2015 13:31:00 06/03/2015 14:20:10 [id number] [address] [address] [place] [address] 06/09/2017 13:17:18 06/09/2017 14:38:25 [id number] [address] [address] [address] [place] [address] 10/28/2018 08:18:47 10/28/2018 09:00:42 [id number] [address] [address] [address] [place] [address] 02/28/2017 08:39:54 02/28/2017 09:19:50 [id number] [address] [address] [address] [place] [address] 02/26/2017 13:13:13 02/26/2017 14:00:54 [id number] [address] [address] [address] [place] [address] 07/22/2019 17:01:41 07/22/2019 17:41:42 [id number] CHRIS AGUILERA MD [address] [address] [place] [address] 12/03/2022 11:03:28 12/03/2022 15:43:29 History and physical examination, pre-employment [id number] Z02.1 Health Concerns Section Related Observation LastModified by Organization Detai ls LastModified Time None Recorded Concern Status LastModified by Organization Details LastModified Time None Recorded Advance Directives Directive None Recorded Payers Insurance Date Sequence Insurance Name Policy Number Policy Butler Covered Member ID Butler Member ID Guarantor Name 12/03/2022 1 [place] [facility] Chacha Delgado [id number] Chacha Delgado 12/03/2022 DO NOT USE Chacha Delgado PAY AT TIME OF SERVICE PAY AT TIME OF SERVICE Chacha Delgado 12/04/2022 PAY AT TOS Chachaluis enrique Delgado PAY AT TIME OF SERVICE PAY AT TIME OF SERVICE Chacha Delgado Notes Date Note Type Note Provider Name and Address Organization Details Recorded Time 12/03/2022 text/html PhysicalReported by PatientHPIFor source of patient information, patient reportspatient. For patient presents for a physical for, patient reportsemployment. 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
--- OUTSIDE RECORDS SUMMARY | 2025-07-26 13:27 | XMS_ITS | Clinical Summary ---
Author Organization [address] [place] [address] Address [address] [place] [address] Phone Care Team Providers Care Fulfillment Mail Clerk Name Role Phone Physician, Pcp Unknown Primary Care Provider Yuli vailable Surgical History Surgery Date Site/Laterality Comments CHOLECYSTECTOMY 1990 PROCEDURE: HISTORICAL CHOLECYSTECTOMY HYSTERECTOMY 2010 PROCEDURE: HISTORICAL HYSTERECTOMY; COMMENT: due to cervical and ovarian cancer, done by Dr. Whitehead BREAST BIOPSY 04-18-16 Left PROCEDURE: BX BREAST; PERC NEEDLE CORE W/IMAG GUID Medical History Medical History Date Comments Cervical cancer ([facility] V24, [facility] V28) 2012 DX:Cervical cancer (HCC); COMMENT: Seeing Dr. 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 Anxiety disorder 06/01/2013 DX:Anxiety diso rder Hypertriglyceridemia 03/11/2016 DX:Hypertri glyceridemia Ovarian cancer ([facility] V24, [facility] V28) 2010 DX:Ovarian cancer (HCC) History of [...] Upcoming Encounters Date Type Department Care Team ([facility] Contact Info) Description 08/02/2025 3:00 PM EDT Office Visit Orthopedic Surgery - [place] 250 175 [facility] 250 [place] [phone] Henry Medina, DPMarcia 175 [facility] [address] [place] [address] Health Maintenance Due Date Last Done Comments Breast Cancer Screening 1967 Colorectal Cancer Screening: Colonoscopy 1965 DTaP,Tdap,and Td Vaccines (1 - Tdap) 1986 Hepatitis B Vaccines (1 of 3 - 19+ 3-dose series) 1986 Pneumococcal Vaccine: 50+ Ye ars (1 of 2 - PCV) 1986 Zoster Vaccines (1 of 2) 2017 Depression Screening 10/05/2024 Cholesterol Screening (Lipid Panel) 05/01/2025 HIV Screening 05/01/2025 Hepatitis C Screening 05/01/2025 Social Influencers of Health Screening 05/01/2025 COVID-19 Vaccine (1 - 2023-2 5 season) 2025 Influenza Vaccine (#1) 2025 06/15/2019 RSV Immunization Adult Patie nts (1 - 1-dose 75+ series) 2042 HIB Vaccines Aged Out No longer eligi [...] complete this topic Insurance [place] - [place] [facility] Care Teams Fulfillment Mail Clerk Relationship Specialty Start Date End Date Physician, Pcp Unknown PCP - General 05/01/25
[2025-07-26 14:41] LABS: Cholesterol 147 mg/dL (<200); HDL Cholesterol 59 mg/dL (>40); Triglycerides 80 mg/dL (<150)
== END 2025-07-26 10:36 | disposition home or self-care (01) ==
LOC: HO.CHCLDS 10:35
PROVIDERS: Visit Provider Internal Medicine
DX: Z12.31 Encounter for screening mammogram for malignant neoplasm of breast (principal)
CPT/HCPCS: 36415; 80061